=== PATIENT | male | born 1970 | race Caucasian/White ===

== ENCOUNTER 2017-12-13 16:04 | Inpatient (IN) | payer MEDICAID ==
[~2017-12-13] VITALS: Ht 175.3 cm; Wt 70.8 kg
[2017-12-13 16:23] VITALS: Ht 175.3 cm; Wt 70.8 kg
[2017-12-13 18:29] LABS: BASOPHIL % 0.3 % (0-2)
[2017-12-13 18:31] LABS: PLATELET COUNT 123 x10^3mcL (130-400); RED CELL DISTRIBUTION WIDTH 17.9 % (11.5-14.5)
[2017-12-13 18:43] LABS: CALCIUM 7.5 mg/dL (8.5-10.1); CHLORIDE SERUM 113 mmol/L (98-107); CREATININE SERUM 0.9 mg/dL (0.7-1.3); GFR1 > 60 mL/min; GLUCOSE SERUM 99 mg/dL (74-106); POTASSIUM SERUM 4.2 mmol/L (3.5-5.1); SODIUM SERUM 144 mmol/L (136-145)
[2017-12-13 18:47] LABS: ALKALINE PHOSPHATASE 130 U/L (46-116); ALT/SGPT 52 U/L (16-63); AST/SGOT 70 U/L (15-37); BILIRUBIN TOTAL 0.6 mg/dL (0.20-1.00); LIPASE 342 IU/L (73-393)
[2017-12-13 19:05] LABS: ALBUMIN 1.9 g/dL (3.4-5.0); TOTAL PROTEIN, SERUM 5.6 g/dL (6.4-8.2)
[2017-12-13 21:29] LABS: T3 TOTAL 1.3 ng/mL
[2017-12-13 21:37] VITALS: BP 138/51
[2017-12-13 21:38] LABS: FREE T4 1.27 ng/dL (0.76-1.46); FREE THYROXINE INDEX 2.6 ug/dL (1.4-4.5); T4(THYROXINE) 7.7 ug/dL (4.7-13.3)
[2017-12-13 21:49] LABS: CHOLESTEROL/HDL RATIO 2.6; MAGNESIUM 1.4 mg/dL (1.8-2.4); PHOSPHOROUS 3.6 mg/dL (2.5-4.9)
[2017-12-14 00:44] LABS: UA SPECIFIC GRAVITY 1.015 (1.005-1.035); microscopic required? YES; urine erythrocyte 3+ (NEGATIVE)
[2017-12-14 05:29] VITALS: BP 131/65
[2017-12-14 06:54] LABS: BASOPHIL % 0.3 % (0-2)
[2017-12-14 06:55] LABS: PLATELET COUNT 125 x10^3mcL (130-400); RED CELL DISTRIBUTION WIDTH 18.2 % (11.5-14.5)
[2017-12-14 06:58] LABS: CALCIUM 7.5 mg/dL (8.5-10.1); CARBON DIOXIDE 21.5 mmol/L (21-32); CHLORIDE SERUM 113 mmol/L (98-107); CREATININE SERUM 0.9 mg/dL (0.7-1.3); GFR1 > 60 mL/min; GLUCOSE SERUM 84 mg/dL (74-106); MAGNESIUM 1.9 mg/dL (1.8-2.4); PHOSPHOROUS 3.5 mg/dL (2.5-4.9); POTASSIUM SERUM 4.1 mmol/L (3.5-5.1); SODIUM SERUM 141 mmol/L (136-145)
[2017-12-14 09:45] VITALS: BP 110/57
[2017-12-14 16:58] VITALS: BP 147/70
[2017-12-14 21:18] VITALS: BP 132/78
[2017-12-15 05:31] VITALS: BP 123/68
[2017-12-15 06:28] LABS: CALCIUM 7.6 mg/dL (8.5-10.1); CARBON DIOXIDE 21.1 mmol/L (21-32); CHLORIDE SERUM 114 mmol/L (98-107); GFR1 > 60 mL/min; GLUCOSE SERUM 79 mg/dL (74-106); MAGNESIUM 1.7 mg/dL (1.8-2.4); PHOSPHOROUS 3.2 mg/dL (2.5-4.9); POTASSIUM SERUM 4.1 mmol/L (3.5-5.1); SODIUM SERUM 141 mmol/L (136-145)
[2017-12-15 06:38] LABS: BASOPHIL % 0.2 % (0-2); PLATELET COUNT 115 x10^3mcL (130-400)
[2017-12-15 08:44] VITALS: BP 119/68
[2017-12-15] MEDS ORDERED: MOT800 PO (14:39)
[2017-12-15 16:19] VITALS: BP 119/68
== END 2017-12-15 16:54 | disposition home or self-care (01) | DRG 254 ==
LOC: ED 16:04 → MU 19:26
PROVIDERS: Emergency Medicine; Internal Medicine
DX: K42.9 Umbilical hernia without obstruction or gangrene (principal); N17.0 Acute kidney failure with tubular necrosis; E43 Unspecified severe protein-calorie malnutrition; R18.8 Other ascites; E83.42 Hypomagnesemia; E83.51 Hypocalcemia; K74.60 Unspecified cirrhosis of liver; K40.91 Unilateral inguinal hernia, without obstruction or gangrene, recurrent; R31.9 Hematuria, unspecified; Z68.24 Body mass index [BMI] 24.0-24.9, adult
CPT/HCPCS: 83880; 84439; J1170; J2270; J2405; J2765; J3475; J7030; Q0092; Q0162; Q9967

== ENCOUNTER 2018-04-06 19:52 | Emergency (ER) | payer MEDICAID ==
[~2018-04-06] VITALS: Ht 172.7 cm; Wt 72.1 kg
[~2018-04-06 19:52] MED LIST: MOT800 PO
[2018-04-06 19:59] VITALS: Ht 172.7 cm; Wt 72.1 kg
[2018-04-06 21:48] VITALS: BP 132/80
== END 2018-04-06 21:48 | disposition home or self-care (01) ==
LOC: ED 19:52
DX: B34.9 Viral infection, unspecified (principal); H61.22 Impacted cerumen, left ear; K46.9 Unspecified abdominal hernia without obstruction or gangrene

== ENCOUNTER 2018-07-02 16:14 | Inpatient (IN) | payer MEDICAID ==
[~2018-07-02] VITALS: Ht 175.3 cm; Wt 69.6 kg
[2018-07-02 16:21] VITALS: Ht 175.3 cm; Wt 69.6 kg
[2018-07-02 18:27] LABS: BASOPHIL % 0.4 % (0-2); PLATELET COUNT 130 x10^3mcL (130-400)
[2018-07-02 18:29] LABS: RED CELL DISTRIBUTION WIDTH 16.4 % (11.5-14.5)
[2018-07-02 18:38] LABS: CALCIUM 8.1 mg/dL (8.5-10.1); CARBON DIOXIDE 25.2 mmol/L (21-32); CREATININE SERUM 1.6 mg/dL (0.7-1.3); POTASSIUM SERUM 4.6 mmol/L (3.5-5.1)
[2018-07-02 18:42] LABS: BILIRUBIN TOTAL 0.64 mg/dL (0.20-1.00); TOTAL PROTEIN, SERUM 6.8 g/dL (6.4-8.2)
[2018-07-02 18:43] LABS: ALBUMIN 2.6 g/dL (3.4-5.0)
[2018-07-02 21:35] LABS: MAGNESIUM 1.8 mg/dL (1.8-2.4)
[2018-07-02 21:38] LABS: CHOLESTEROL/HDL RATIO 2.6
[2018-07-02 21:58] LABS: UA SPECIFIC GRAVITY 1.025 (1.005-1.035); microscopic required? YES; urine erythrocyte 3+ (NEGATIVE)
[2018-07-02 22:08] LABS: AMPHETAMINE QUAL UR NONE DETECTED (See below)
[2018-07-02 22:13] VITALS: BP 110/68
[2018-07-03 06:15] VITALS: BP 115/64
[2018-07-03 06:44] LABS: CALCIUM 7.5 mg/dL (8.5-10.1); CARBON DIOXIDE 21.6 mmol/L (21-32); CREATININE SERUM 1.7 mg/dL (0.7-1.3); MAGNESIUM 1.7 mg/dL (1.8-2.4); PHOSPHOROUS 3.5 mg/dL (2.5-4.9); POTASSIUM SERUM 4.5 mmol/L (3.5-5.1)
[2018-07-03 06:52] LABS: BASOPHIL % 0.3 % (0-2); PLATELET COUNT 106 x10^3mcL (130-400); RED CELL DISTRIBUTION WIDTH 16.1 % (11.5-14.5)
[2018-07-03 10:19] VITALS: BP 131/64
[2018-07-03 16:19] VITALS: BP 133/87
[2018-07-03 21:57] VITALS: BP 141/72
[2018-07-04 05:46] VITALS: BP 124/69
[2018-07-04 07:35] VITALS: BP 136/58
[2018-07-04 15:50] VITALS: BP 136/58
[2018-07-04 21:06] VITALS: BP 113/58
[2018-07-05 06:09] VITALS: BP 115/59
[2018-07-05 07:08] LABS: BASOPHIL % 0.6 % (0-2); PLATELET COUNT 106 x10^3mcL (130-400); RED CELL DISTRIBUTION WIDTH 15.5 % (11.5-14.5)
[2018-07-05 07:26] LABS: CALCIUM 7.7 mg/dL (8.5-10.1); CARBON DIOXIDE 25.2 mmol/L (21-32); CREATININE SERUM 1.4 mg/dL (0.7-1.3); MAGNESIUM 1.6 mg/dL (1.8-2.4); PHOSPHOROUS 3.4 mg/dL (2.5-4.9)
[2018-07-05 10:27] VITALS: BP 109/59
[2018-07-05 14:54] VITALS: BP 109/59
[2018-07-05 19:19] VITALS: BP 123/77
[2018-07-05 21:24] VITALS: BP 101/65
[2018-07-06 05:34] VITALS: BP 109/61
[2018-07-06 07:34] LABS: CALCIUM 7.7 mg/dL (8.5-10.1); CARBON DIOXIDE 26.9 mmol/L (21-32); CHLORIDE SERUM 105 mmol/L (98-107); CREATININE SERUM 1.3 mg/dL (0.7-1.3); GFR1 > 60 mL/min; GLUCOSE SERUM 89 mg/dL (74-106); MAGNESIUM 1.8 mg/dL (1.8-2.4); PHOSPHOROUS 4.1 mg/dL (2.5-4.9); POTASSIUM SERUM 4.4 mmol/L (3.5-5.1); SODIUM SERUM 137 mmol/L (136-145)
[2018-07-06 07:58] LABS: BASOPHIL % 0.7 % (0-2); PLATELET COUNT 109 x10^3mcL (130-400); RED CELL DISTRIBUTION WIDTH 15.4 % (11.5-14.5)
[2018-07-06 08:48] VITALS: BP 106/56
[2018-07-06 15:52] VITALS: BP 102/57
[2018-07-06 21:27] VITALS: BP 108/55
[2018-07-07 05:15] VITALS: BP 107/44
[2018-07-07 06:20] LABS: CALCIUM 7.9 mg/dL (8.5-10.1); CARBON DIOXIDE 29.5 mmol/L (21-32); CREATININE SERUM 1.4 mg/dL (0.7-1.3); PHOSPHOROUS 3.9 mg/dL (2.5-4.9); POTASSIUM SERUM 4.6 mmol/L (3.5-5.1)
[2018-07-07 06:39] LABS: BASOPHIL % 0.6 % (0-2); PLATELET COUNT 114 x10^3mcL (130-400); RED CELL DISTRIBUTION WIDTH 15.7 % (11.5-14.5)
[2018-07-07] MEDS ORDERED: LACL PO (09:53)
[2018-07-07 10:02] VITALS: BP 107/44
[2018-07-07 10:35] VITALS: BP 112/61
== END 2018-07-07 11:25 | disposition home or self-care (01) | DRG 281 ==
LOC: ED 16:14 → MU 21:04
PROVIDERS: Emergency Medicine; Internal Medicine; ADMIT General Practice
DX: C22.0 Liver cell carcinoma (principal); N17.0 Acute kidney failure with tubular necrosis; E43 Unspecified severe protein-calorie malnutrition; G93.41 Metabolic encephalopathy; K76.6 Portal hypertension; K70.31 Alcoholic cirrhosis of liver with ascites; K42.9 Umbilical hernia without obstruction or gangrene; N43.2 Other hydrocele; K80.20 Calculus of gallbladder without cholecystitis without obstruction; R80.9 Proteinuria, unspecified; R31.9 Hematuria, unspecified; Z68.22 Body mass index [BMI] 22.0-22.9, adult; Z79.1 Long term (current) use of non-steroidal anti-inflammatories (NSAID)
CPT/HCPCS: A9698; J1885; J1940; J2270; J2405; J2765; J3010; J7030; Q0092; Q9967